=== PATIENT | female | born 1990 | race Caucasian/White ===

== ENCOUNTER 2016-08-01 06:34 | Emergency (ER) | payer MEDICAID ==
[~2016-08-01] VITALS: Ht 157.5 cm; Wt 81.0 kg
[2016-08-01] MEDS ORDERED: DEXT15CA10 PO (06:43)
[2016-08-01] MEDS ORDERED: SERT50TA12 PO (06:43)
[2016-08-01] MEDS ORDERED: FAMO20 PO (06:43)
[2016-08-01] MEDS ORDERED: ALBU8.5H IH (06:44)
[2016-08-01] MEDS ORDERED: PROM25 PO (06:44)
[2016-08-01 06:59] LABS: BASOPHILS # (AUTO) 0.04 K/uL (0.00-0.20); BASOPHILS % (AUTO) 0.4 % (0.0-2.0); EOSINOPHILS # (AUTO) 0.04 K/uL (0.00-0.70); HEMATOCRIT 39.9 % (36-46); HEMOGLOBIN 13.7 g/dL (12.0-16.0); LYMPHOCYTES # (AUTO) 1.2 K/uL (1.0-4.8); LYMPHOCYTES % (AUTO) 9.6 % (22.0-44.0); MEAN CORPUSCULAR HEMOGLOBIN 31.6 pg (26.0-34.0); MEAN CORPUSCULAR HGB CONC 34.4 G/dL (31.0-37.0); MEAN CORPUSCULAR VOLUME 92 fL (80-100); MONOCYTES # (AUTO) 0.6 K/uL (0.1-1.0); MONOCYTES % (AUTO) 4.7 % (2.0-9.0); NEUTROPHILS # (AUTO) 10.2 K/uL (1.8-7.7); PLATELET COUNT (AUTO) 232 K/uL (150-450); RED BLOOD CELL COUNT(AUTO) 4.34 MIL/uL (4.00-5.20); RED CELL DISTRIBUTION WIDTH 14.1 % (11.5-14.5)
[2016-08-01] MEDS ORDERED: PANTOPRAZOLE SODIUM 40 MG/VIAL IVP ONE (07:00)
[2016-08-01] MEDS ORDERED: ONDANSETRON HCL 4 MG/2 ML VIAL IVP ONE (07:00)
[2016-08-01] MEDS ORDERED: MORPHINE SULFATE 2 MG/ML SYRINGE IVP ONE (07:00)
[2016-08-01 07:07] LABS: ANION GAP 4 mmol/L (8-16); CALCIUM, TOTAL 8.7 mg/dL (8.8-10.5); CARBON DIOXIDE 29 mmol/L (22-29); CHLORIDE 104 mmol/L (98-107); CREATININE 0.86 mg/dL (0.60-1.30); GLOMERULAR FILTR. RATE CALC > 60 mL/min (>60); POTASSIUM 3.9 mmol/L (3.5-5.1); SODIUM SERUM 137 mmol/L (136-145); UREA NITROGEN, BLOOD 16 mg/dL (7-18)
[2016-08-01 07:15] LABS: ALANINE AMINOTRANSFERASE 27 U/L (12-78); ALBUMIN 3.8 g/dL (3.4-5.0); ASPARTATE AMINOTRANSFERASE 18 U/L (15-37); BILIRUBIN,TOTAL 0.6 mg/dL (0.1-1.0); TOTAL PROTEIN, SERUM 7.9 g/dL (6.4-8.2)
[2016-08-01 08:56] LABS: APPEARANCE,URINE CLOUDY (CLEAR); GLUCOSE, URINE (UA) NEGATIVE (NEGATIVE); KETONES,URINE NEGATIVE (NEGATIVE); LEUKOCYTE ESTERASE ,URINE SMALL (NEGATIVE); OCCULT BLOOD,URINE NEGATIVE (NEGATIVE); PROTEIN,URINE NEGATIVE (NEGATIVE)
[2016-08-01] MEDS ORDERED: PHENOBARB/HYOSCY/ATROPINE/SCOP 5 ML UDCUP ELIXIR PO ONE (09:00)
[2016-08-01] MEDS ORDERED: KETOROLAC TROMETHAMINE 30 MG/ML VIAL IVP ONE (09:00)
[2016-08-01 09:06] LABS: SQUAMOUS EPITHELIAL CELL,UR Moderate /LPF (None Seen)
[2016-08-01 11:00] VITALS: BP 108/68
== END 2016-08-01 11:30 | disposition home or self-care (01) ==
LOC: EMS 06:35
DX: N39.0 Urinary tract infection, site not specified (principal)
CPT/HCPCS: 36415; 74176; 80053; 80307; 81001; 83690; 84703; 85025; 87086; 96374; 96375; 99285; C9113; J1885; J2270; J2405

== ENCOUNTER 2024-08-04 19:06 | Emergency (ER) | payer MEDICAID, OTHER ==
[~2024-08-04] VITALS: Ht 160 cm; Wt 78.0 kg
[~2024-08-04 19:06] MED LIST: ALBU8.5H8 IH; DEXT15CA10 PO; FAMO20 PO; PROM-223 PO; SERT-158 PO
[2024-08-04 19:14] VITALS: BP 108/78; PULSE 68; RESP 16; TEMP 98; O2SAT 100
== END 2024-08-04 20:29 | disposition left against medical advice (07) ==
LOC: EMS 19:06
DX: S01.111A Laceration without foreign body of right eyelid and periocular area, initial encounter (principal); Z53.21 Procedure and treatment not carried out due to patient leaving prior to being seen by health care provider; X58.XXXA Exposure to other specified factors, initial encounter; Y93.89 Activity, other specified; Y92.89 Other specified places as the place of occurrence of the external cause; Y99.8 Other external cause status

== ENCOUNTER 2025-01-01 23:17 | Emergency (ER) | payer OTHER ==
[~2025-01-01] VITALS: Ht 160 cm; Wt 76.8 kg
[2025-01-01 23:24] VITALS: BP 124/66; PULSE 85; RESP 14; TEMP 98.4; O2SAT 97
[2025-01-02] MEDS: DiphenhydrAMINE HCL 25 MG CAPSULE PO ONE (01:00)
[2025-01-02] MEDS: OFLOXACIN 0.3% 5 ML OPHTHALMIC SOLUTION OD ONE (01:00)
== END 2025-01-02 01:01 | disposition home or self-care (01) ==
LOC: EMS 23:27
DX: H10.89 Other conjunctivitis (principal); H05.221 Edema of right orbit; F17.210 Nicotine dependence, cigarettes, uncomplicated; F12.90 Cannabis use, unspecified, uncomplicated; Z87.19 Personal history of other diseases of the digestive system; Z79.899 Other long term (current) drug therapy
CPT/HCPCS: 99283

== ENCOUNTER → 2025-01-11 | Emergency (ER) | payer OTHER ==
[~2025-01-11] MED LIST changes: +ACET-3385 PO; +ALBU18HF12 IH; -ALBU8.5H8 IH; +AMOX-457 PO; -DEXT15CA10 PO; +HYDR-4062 PO; +LACT10SO85 PO; +ONDA-104 PO; +PANT-31 PO
== END | disposition left against medical advice (07) ==
LOC: EMS 21:51
DX: R06.02 Shortness of breath (principal); Z53.21 Procedure and treatment not carried out due to patient leaving prior to being seen by health care provider